=== PATIENT | female | born 1995 | race Caucasian/White ===

== ENCOUNTER 2020-06-10 10:27 | Emergency (ER) | payer MEDICAID ==
[~2020-06-10] VITALS: Ht 165.1 cm; Wt 68.2 kg
[2020-06-10 10:47] VITALS: BP 130/75
== END 2020-06-10 10:47 | disposition home or self-care (01) ==
LOC: EMS 10:29
DX: Z20.828 Contact with and (suspected) exposure to other viral communicable diseases (principal)
CPT/HCPCS: 99283; U0003